=== PATIENT | female | born 1980 ===

== ENCOUNTER 2018-01-09 11:47 | Emergency (ER) | payer OTHER ==
[2018-01-09 11:50] VITALS: BMI 22.1
[2018-01-09] MEDS ORDERED: Oxycodone/Acetaminophen 5/325 mg Tab PO STA (12:34)
[2018-01-09] MEDS ORDERED: Sodium Chloride 0.9% 1,000 ML IV ONE ×2 (12:34→13:27)
[2018-01-09] MEDS ORDERED: Sodium Chloride 0.9% 1,000 ML ONE ×2 (12:46→13:25)
[2018-01-09] MEDS ORDERED: Oxycodone/Acetaminophen 5/325 mg Tab ONE (12:47)
[2018-01-09 12:48] LABS: BASO % 0.3 % (0.0-2.0); EOS % 0.3 % (0.0-4.0); HEMOGLOBIN 13.5 g/dL (11.0-16.0); LYMPH # 1.6 K/uL (1.0-4.3); LYMPH % 11.7 % (20.0-40.0); MEAN CELL VOLUME 86.5 fL (81.0-99.0); MEAN CORPUSCULAR HEMOGLOBIN 29.9 pg (27.0-31.0); MEAN CORPUSCULAR HGB CONC 34.6 g/dL (33.0-37.0); MEAN PLATELET VOLUME 10.3 fL (7.2-11.7); MONO # 0.8 K/uL (0.0-0.8); MONO % 6.2 % (0.0-10.0); NEUT # 11.1 K/uL (1.8-7.0); NEUT % 81.5 % (50.0-75.0); RBC 4.5 Mil/uL (3.80-5.20); RED CELL DISTRIBUTION WIDTH 12.7 % (11.5-14.5); WHITE BLOOD COUNT 13.6 K/uL (4.8-10.8)
[2018-01-09 12:56] LABS: URINE BILIRUBIN NEGATIVE (NEGATIVE); URINE BLOOD 3+ (NEGATIVE); URINE CLARITY Hazy (Clear); URINE COLOR Red (YELLOW); URINE GLUCOSE (UA) NORMAL (Normal); URINE LEUKOCYTE ESTERASE TRACE Leu/uL (Negative); URINE PROTEIN 3+ mg/dL (NEGATIVE); URINE UROBILINOGEN NORMAL mg/dL (0.2-1.0)
[2018-01-09 12:58] LABS: HCG,QUALITATIVE URINE NEGATIVE (NEGATIVE)
[2018-01-09 13:00] LABS: ALB/GLOB RATIO 1.2 (1.0-2.1); ALBUMIN 4.4 g/dL (3.5-5.0); ALT/SGPT 39 U/L (9-52); AST/SGOT 21 U/L (14-36); BLOOD UREA NITROGEN 10 mg/dL (7-17); CALCIUM 8.8 mg/dl (8.6-10.4); GFR AFRICAN-AMERICAN > 60; GFR NON-AFRICAN AMERICAN > 60
--- NOTE | 2018-01-09 14:37 | C.PDOC ---
History Of Present Illness 37yo female, comes to ER with complaints of vaginal bleeding and pelvic pain x 2 months. Patient states sometimes the bleed in intermittent and occasionally passing painful clots. Patient was seen by her OBGYN and placed on oral contraceptives, which she has been taking with no relief. Patient also reports taking Tylenol this morning with no relief. Patient has used 2 pads per day for the bleeding. No other complaints. Time Seen by Provider: 01/09/18 12:28 Chief Complaint (Nursing): Abdominal Pain History Per: Patient History/Exam Limitations: no limitations Onset/Duration Of Symptoms: Persistent Current Symptoms Are (Timing): Still Present Location Of Pain/Discomfort: Suprapubic Abnormal Vaginal Bleeding: Yes Past Medical History Reviewed: Historical Data, Nursing Documentation, Vital Signs Vital Signs: Last Vital Signs Temp 98.7 F 01/09/18 17:05 Pulse 87 01/09/18 17:05 Resp 17 01/09/18 17:05 BP 102/67 01/09/18 17:05 Pulse Ox 98 01/09/18 17:05 - Medical History PMH: No Chronic Diseases Surgical History: No Surg Hx Family History: States: No Known Family Hx - Social History Hx Alcohol Use: No Hx Substance Use: No - Immunization History Hx Tetanus Toxoid Vaccination: No Hx Influenza Vaccination: No Review Of Systems Except As Marked, All Systems Reviewed And Found Negative. Genitourinary: Positive for: Vaginal Bleeding, Pelvic Pain Physical Exam - Physical Exam Appears: Non-toxic, In Acute Distress (moderate) Skin: Warm, Dry Head: Normacephalic Eye(s): bilateral: Normal Inspection Neck: Normal ROM, Supple Chest: Symmetrical Cardiovascular: Rhythm Regular Respiratory: Normal Breath Sounds Gastrointestinal/Abdominal: Soft, Tenderness (suprapubic), No Guarding, No Rebound Back: Normal Inspection, No CVA Tenderness Extremity: Normal ROM, No Pedal Edema Neurological/Psych: Oriented x3 ED Course And Treatment - Laboratory Results Result Diagrams: 01/09/18 12:43 01/09/18 12:43 Lab Interpretation: Abnormal Urine POC: Negative O2 Sat by Pulse Oximetry: 96 (RA) Pulse Ox Interpretation: Normal - CT Scan/US US PElvis/Transvag Other Rad Studies (CT/US): Radiology Report Reviewed CT/US Interpretation: FINDINGS: UTERUS: Measures 9.7 x 5.2 x 5.7 cm. Retroverted. No fibroid or other mass lesion seen. ENDOMETRIUM: Measures 16 mm in diameter. No intrauterine gestational sac identified. CERVIX: No cervical abnormality identified. RIGHT OVARY: Measures 3.2 x 1.6 x 2.5 cm. No solid mass. Normal flow. Simple cyst, 1.8 cm. Likely physiologic. LEFT OVARY: Measures 2.2 x 1.1 x 2.7 cm. No solid mass. Normal flow. FREE FLUID: Small amount of free fluid in cul-de-sac and right adnexa. OTHER FINDINGS: None. IMPRESSION: No intrauterine gestation identified. Retroverted uterus. 1.8 cm physiologic right ovarian cyst. Small amount of nonspecific fluid in cul-de- sac and right adnexal region. CT Abd/Pelvis Other Rad Studies (CT/US): Radiology Report Reviewed CT/US Interpretation: FINDINGS: LOWER THORAX: The visualized lungs are clear. LIVER: Normal in size with homogeneous enhancement. No gross lesion or ductal dilatation. GALLBLADDER AND BILE DUCTS: No calcified gallstones. PANCREAS: Normal in size with homogeneous enhancement. No gross lesion or ductal dilatation. SPLEEN: Normal in size and appearance. ADRENALS: No discrete nodule. KIDNEYS AND URETERS: Normal in size with homogeneous enhancement. No hydronephrosis. No solid mass. VASCULATURE: Unremarkable. No aortic aneurysm. BOWEL: The small bowel loops are normal in caliber. There is scattered colonic diverticulosis without CT evidence for acute diverticulitis. No bowel wall thickening or obstruction. APPENDIX: Normal appendix. PERITONEUM: No free fluid. No free air. LYMPH NODES: No enlarged lymph nodes. BLADDER: Grossly normal in appearance. REPRODUCTIVE: The uterus is normal in size. Small amount of free fluid in the cul de sac is likely physiologic. BONES: No acute fracture. OTHER FINDINGS: None. IMPRESSION: No acute abdominal or pelvic abnormality. Small amount of free fluid in the cul de sac is likely physiologic. Reevaluation Time: 16:53 Reassessment Condition: Improved - Physician Consult Information Outcome Of Conversation: 1700: d/w OB [employer] sales consultant, Dr. Phelps-. does not reccomend ABX at this time. unable to eval for PID (low susp) at this time. recommend repeat blood work after MP. continue OCP Medical Decision Making Medical Decision Making: Plan: -- Labs -- US Pelvis/Transvaginal -- IV Fluids -- Percocet 1 tab PO -- Toradol 30mg IV 1301 CT Abdomen/Pelvis w/ IV contrast ordered. No sig anemia hgb 13 low susp PID painful menstrual periods Motrin/Tramadol PRN Disposition Doctor Will See Patient In The: Office Counseled Patient/Family Regarding: Studies Performed, Diagnosis - Disposition Referrals: [facility] [Outside] [facility] [Outside] [facility] [Outside] [facility] [Outside] Marek Phelps MD [Staff Provider] - Disposition: HOME/ ROUTINE Disposition Time: 16:54 Condition: GOOD Additional Instructions: arturo Ibuprofeno 400-600 mg cada 6 horas nnamdi necessario para dolor Tramadol 50 mg (narcotico) 1-2 tabletas cada 6 horas nnamdi necessario para dolor mas shantal Sigue love pastilla anti-conceptivos Sigue con [facility] o' love OBGYN nnamdi necessario [place] para hacer sherry Prescriptions: traMADol [Ultram] 50 mg PO Q6H PRN #20 tab PRN Reason: pain Instructions: Painful Periods Forms: [facility] ([place] Islander) Print Language: MONEGASQUE - Clinical Impression Clinical Impression: Dysmenorrhea, DUB (dysfunctional uterine bleeding) - Scribe Statement The provider has reviewed the documentation as recorded by the Marlenibfannie Tipton Provider Attestation: All medical record entries made by the Scribe were at my direction and personally dictated by me. I have reviewed the chart and agree that the record accurately reflects my personal performance of the history, physical exam, medical decision making, and the department course for this patient. I have also personally directed, reviewed, and agree with the discharge instructions and disposition.
--- NOTE | 2018-01-09 14:44 | US ---
Date of service: 01/09/2018 HISTORY: pelvic pain, chronic bleeding COMPARISON: None available. TECHNIQUE: Transabdominal and transvaginal FINDINGS: UTERUS: Measures 9.7 x 5.2 x 5.7 cm. Retroverted. No fibroid or other mass lesion seen. ENDOMETRIUM: Measures 16 mm in diameter. No intrauterine gestational sac identified. CERVIX: No cervical abnormality identified. RIGHT OVARY: Measures 3.2 x 1.6 x 2.5 cm. No solid mass. Normal flow. Simple cyst, 1.8 cm. Likely physiologic. LEFT OVARY: Measures 2.2 x 1.1 x 2.7 cm. No solid mass. Normal flow. FREE FLUID: Small amount of free fluid in cul-de-sac and right adnexa. OTHER FINDINGS: None. IMPRESSION: No intrauterine gestation identified. Retroverted uterus. 1.8 cm physiologic right ovarian cyst. Small amount of nonspecific fluid in cul-de-sac and right adnexal region.
[2018-01-09] MEDS ORDERED: Iodixanol 320 MG/ML 100 ML BOTTLE IV ONE (15:39)
--- NOTE | 2018-01-09 16:21 | CT ---
Date of service: 01/09/2018 PROCEDURE: CT Abdomen and Pelvis with contrast HISTORY: suprapubic pain, DUB COMPARISON: None. TECHNIQUE: CT scan of the abdomen and pelvis was performed after administration of intravenous contrast. Oral contrast was not administered. Coronal and sagittal reformatted images were obtained. Contrast dose: 100 mL Visipaque Radiation dose: Total exam DLP = 271.91 mGy-cm. This CT exam was performed using one or more of the following dose reduction techniques: Automated exposure control, adjustment of the mA and/or kV according to patient size, and/or use of iterative reconstruction technique. FINDINGS: LOWER THORAX: The visualized lungs are clear. LIVER: Normal in size with homogeneous enhancement. No gross lesion or ductal dilatation. GALLBLADDER AND BILE DUCTS: No calcified gallstones. PANCREAS: Normal in size with homogeneous enhancement. No gross lesion or ductal dilatation. SPLEEN: Normal in size and appearance. ADRENALS: No discrete nodule. KIDNEYS AND URETERS: Normal in size with homogeneous enhancement. No hydronephrosis. No solid mass. VASCULATURE: Unremarkable. No aortic aneurysm. BOWEL: The small bowel loops are normal in caliber. There is scattered colonic diverticulosis without CT evidence for acute diverticulitis. No bowel wall thickening or obstruction. APPENDIX: Normal appendix. PERITONEUM: No free fluid. No free air. LYMPH NODES: No enlarged lymph nodes. BLADDER: Grossly normal in appearance. REPRODUCTIVE: The uterus is normal in size. Small amount of free fluid in the cul de sac is likely physiologic. BONES: No acute fracture. OTHER FINDINGS: None. IMPRESSION: No acute abdominal or pelvic abnormality. Small amount of free fluid in the cul de sac is likely physiologic.
[2018-01-09 17:11] VITALS: BP 102/67; PULSE 87; RESP 17; TEMP 98.7
[2018-01-09 18:23] VITALS: O2SAT 96
== END 2018-01-09 17:15 | disposition home or self-care (01) ==
LOC: C.ER 11:47
DX: N93.8 Other specified abnormal uterine and vaginal bleeding (principal); N94.6 Dysmenorrhea, unspecified
CPT/HCPCS: 74177; 76830; 76856; 80053; 81001; 84702; 84703; 85025; 86850; 86900; 96361; 96374; 99285; J1885; J7030; Q9967